=== PATIENT | male | born 1975 | race Caucasian/White ===

== ENCOUNTER 2020-01-03 07:19 | Outpatient (CLI) | payer OTHER, SELFPAY ==
[2020-01-04 14:49] LABS: COVID-19 RT-PCR Result NEGATIVE (Negative)
== END 2020-01-03 07:39 ==
PROVIDERS: Visit Provider Surgery
DX: Z11.59 Encounter for screening for other viral diseases (principal); Z01.818 Encounter for other preprocedural examination
CPT/HCPCS: U0003

== ENCOUNTER 2020-01-08 09:24 | Day surgery (SDC) | payer OTHER, SELFPAY ==
[2020-01-08] VITALS (8 sets, daily range): BP systolic 105–159; BP diastolic 65–97; PULSE 62–76; RESP 11–18; TEMP 36.2–36.6; O2SAT 93–98
--- NOTE | 2020-01-08 07:07 | ROE_ITS ---
Date of service: 01/08/20 Time of Service: 11:25 Operative Note Operative Note DATE OF PROCEDURE: 01/08/20 PRE-OP DIAGNOSIS: umbilical hernia POST-OP DIAGNOSIS: same PROCEDURE: Umbilical hernia repair with mesh SURGEON: Yue Porras ARM[employer]ED [employer]HICLE OFFICER: Loly Swann ANESTHESIA: GETA (ASA 2/ Aminata Botello CRNA) and regional ESTIMATED BLOOD LOSS: 15 PATHOLOGY: none sent COMPLICATIONS: None Patient was transported to: PACU Patient's condition: stable Implants: Ventralex ST Hernia Patch 1.5 inches: REF [id number] LOT [id number] EXO 2021-01-09 Indications: 43 year old who developed an umbilical hernia after a fall from a roof. He is still recovering from a calcaneous fracture as well as spine fractures. He would like to get his hernia repaired soon so that he can recover from that while he is still off work for his back and heel. He is anxious to get back to work as soon as he can Findings: Small 1 cm hernia defect with omentum incarcerated in it. Procedure Description: After informed consent was obtained the patient was taken to the operating room and placed in a supine position. Monitors and SCDs were applied and a timeout was done. The patient's name, date of , procedure type, procedure site, allergies to medications, preoperative antibiotic, and DVT prophylaxis were all reviewed. Fire risk was assessed. Next anesthesia did a bilateral rectus block under ultrasound guidance. Please see their separate dictation. Once anesthesia was done the abdomen was prepped and draped in a sterile surgical fashion. 0.25% Bupivacaine was injected into the dermis just under the umbilicus. An incision was made with a 10 blade under the umbilicus. Dissection was done with cautery through the subcutaneous tissues and through the umbilical stalk down to the fascia. The hernia defect was identified and measured 1 cm. The hernia sac was opened and the incarcerated omentum was amputated. The peritoneum was swept for adhesions. No adhesions were noted. A 1.5 inch round mesh was then placed under the peritoneum and secured in 4 quarters with 2-0 Proline. Once the mesh was secured the tissues were irrigated with some normal saline. No bleeding was identified. The fascia was closed over the mesh with 0 vicryl running suture. 0 Vicryl was used to secure the umbilicus down to the fascia. The subcutaneous tissue was re-approximated with 3-0 vicryl. The dermis was re-approximated with a running 4-0 Vicryl. The skin was cleaned and dried and skin affix was applied. The patient was woken up and taken back to recovery in stable condition. There were no immediate complications. Sponge, instrument and needle counts were correct at the end of the case x2.
--- NOTE | 2020-01-08 07:08 | W.PM.DSUDISC ---
Discharge Plan Disposition Patient Disposition: HOME Condition: Good Discharge Details Reason For Visit: umbilical hernia Attending Provider: Yue Porras Primary Care Provider: None,None Home Meds and New Rx's Prescriptions: Continued ibuprofen [Motrin IB] 200 mg tablet 800 mg PO Q6H PRNRF: 0 ondansetron HCl [Zofran] 4 mg tablet 4 mg PO Q8H RF: 0 Discharge Instructions Additional Instructions: Activity at Home after surgery: 1. Make sure you walk outside at least 4 times per day 2. You should be able to climb a flight of stairs 3. No driving while in pain or taking pain medications 4. No strenuous activity or heavy lifting for 4 weeks (open surgery) Diet, Nutrition, & wound healin. Avoid alcohol until after you are recovered from your surgery 2. Make sure to eat plenty of lean protein (meat, fish, eggs, cottage cheese, beans) 3. Eat a variety of fruits and vegetables. Eat plenty of high fiber foods to avoid constipation. 4. Drink plenty of liquids to stay hydrated and avoid constipation Pain Medications: 1. Tylenol 650 mg every 6 hours and Ibuprofen 600 mg every 6 hours. May alternate between the 2 medications every 3 hours 2. If a narcotic has been prescribed take as directed only for breakthrough pain For Constipation: 1. Take Milk of Magnesia or MiraLax as needed for constipation Other: 1. You may shower daily. Do not scrub the incisions 2. Do not soak the incisions for 1 week 3. You may alternate ice and heat as needed for pain and swelling Wound Care: 1. Keep the incisions clean and dry Other Services that may have been ordered: 0 Home Health- to help with dressing changes 0 Outpatient physical therapy Please call our office if you develop: 1. Fevers >101.5 2. Nausea or Vomiting 3. Worsening pain 4. Redness and thick discharge from the wounds If after hours please call the Hospital at and ask to speak to the on-call surgeon Activity:: no lifting .20 lb x 4 weeks Shower/Bathe:: 24 hours Diet:: As Tolerated Discharge Orders Discharge Orders: Discharge Order (Routine); Ordered 01/08/20 Ordered By: Yue Porras
[2020-01-08] MEDS: Celecoxib 200 MG CAP PO (09:53)
[2020-01-08] MEDS: Acetaminophen 500 MG TAB 1000 MG PO (09:53)
[2020-01-08] MEDS: Lactated Ringers 1,000 ML 80 ML IV (10:18)
[2020-01-08] MEDS: Bupivacaine 0.25% Pres-Free 30 ML VIAL ×2 (10:51→11:04)
[2020-01-08] MEDS: ceFAZolin 2 GM/50 ML BAG IVPB (10:58)
== END 2020-01-08 13:15 | disposition home or self-care (01) ==
LOC: SUR 09:25
PROVIDERS: Visit Provider Surgery
PROC: (CPT 49585; principal; 2020-01-08 11:00)
DX: K42.9 Umbilical hernia without obstruction or gangrene (principal); W13.2XXS Fall from, out of or through roof, sequela; Y99.0 Civilian activity done for income or pay
CPT/HCPCS: 49585; 76942; C1781; J0690; J1885; J2001; J2405; J2704

== ENCOUNTER 2021-06-17 02:57 | Outpatient (CLI) | payer OTHER, SELFPAY ==
[2021-06-17 08:27] LABS: HCT 46.9 % (40.0-50.0); HGB 14.9 g/dL (13.5-17.5); MCH 27.2 pg (27.0-33.0); MCHC 31.8 % (32.0-36.0); MCV 85.7 fL (80-95); MPV 9.9 fL (8.0-11.0); Platelet Count 217 10^3/uL (130-400); RBC 5.47 10^6/uL (4.36-5.78); RDW 13.9 % (11.8-14.1); RDW-SD 43.5 fL
[2021-06-17 08:49] LABS: Hemoglobin A1C 6.1 % (<5.7)
[2021-06-17 09:04] LABS: ALT 39 U/L (16-63); AST 19 U/L (15-37); Albumin 3.8 g/dL (3.4-5.0); Alkaline Phosphatase 85 U/L (46-116); Anion Gap 7.4 mmol/L (3-11); BUN 15 mg/dL (7-18); Bilirubin, Total 0.6 mg/dL (0.2-1.0); CO2 27.6 mmol/L (21.0-32.0); CREATININE 0.7 mg/dL (0.70-1.30); Calcium 8.7 mg/dL (8.5-10.1); Calculated LDL 109 mg/dL (<100); Chloride 104 mmol/L (98-107); Cholesterol 158 mg/dL (<200); Glucose 96 mg/dL (74-106); HDL Cholesterol 31 mg/dL (40-60); Potassium 4.5 mmol/L (3.5-5.1); Sodium 139 mmol/L (136-145); Total Protein 7.2 g/dL (6.4-8.2); Triglyceride 94 mg/dL (<150)
== END 2021-06-17 02:58 | disposition home or self-care (01) ==
PROVIDERS: PCP Nurse Practitioner; Visit Provider Nurse Practitioner
DX: F10.10 Alcohol abuse, uncomplicated (principal); E66.3 Overweight; Z13.1 Encounter for screening for diabetes mellitus; Z13.220 Encounter for screening for lipoid disorders
CPT/HCPCS: 36415; 80053; 80061; 85027; 83036

== ENCOUNTER 2021-07-26 00:29 | Outpatient (CLI) | payer OTHER, SELFPAY ==
--- NOTE | 2021-07-26 07:15 | DI.CT_ITS ---
Exam(s) CT ABDOMEN PELVIS W EXAM: CT ABDOMEN PELVIS W CLINICAL HISTORY: ABD pain, bloody stools,ALCOHOL ABUSE,R10.9.R11.0,VOMITING. TECHNIQUE: Imaging Protocol: Axial computed tomography images with coronal and sagittal reformatted images were created and reviewed CONTRAST MATERIAL: Intravenous: Omnipaque 350 Contrast volume:100 ml Oral: yes COMPARISON: CT ABD PELVIS WITH CONTRAST from 10/29/2015 FINDINGS: ABDOMEN: Lung Bases: Normal where visualized. Liver: Enlarged, moderate to severe fatty infiltration, stable appearance from 2016.. No measurable mass. Gallbladder and biliary tract: No radiodense calculus or dilation. Pancreas: Normal density, no abnormal calcifications or inflammatory process. Spleen: Normal. Kidneys: Normal size, contour and axis. No radiodense stones or obstructive uropathy. No masses seen. Adrenal glands: No masses seen. Abdominal Aorta: Abdominal portion non-dilated. Stomach and proximal small bowel unremarkable. PELVIS: Bladder: No gross wall thickening. No calculi.No focal mass. Bowel: Diverticulosis lower descending and sigmoid colon. Small linear configuration of abnormal mid mesenteric density extending from the lower descending colon to an adjacent loop of small bowel whic h could represent a fistulous tract. There is a rounded low-density collection within the small bow el wall, consistent with an intramural abscess. No significant colonic wall thickening. Appendix no rmal. Peritoneal cavity: No ascites, collection or mesenteric inflammatory response. Bones: Severe L1 compression fracture is new since 2016 but it does not appear acute. Mild degenerat giovany changes, greater in the lower thoracic region. Reproductive organs: Within normal limits. Lymph nodes: Mildly enlarged, reactive mesenteric lymph nodes. Obstruction. Normal quantity of stoo l. Impression: 1. 2.7 centimeter intramural abscess involving a loop of small bowel adjacent to the lower descendin g colon which shows diverticulosis with apparent fistulous tract. 2. Stable appearing moderate to severe hepatic steatosis. RADIATION DOSE DELIVERED: 1,294.74mGy.cm Total DLP DATA REPOSITORY: All CT scans at this facility are submitted to the National Radiology Data Registry (NRDR) Dose Index Registry (DIR) with the [employer] ([employer]). RADIATION OPTIMIZATION: All CT scans at this facility use at least one of these dose optimization te chniques: automated exposure control; mA and/or kV adjustment per patient size (includes targeted exa ms where dose is matched to clinical indication); or iterative reconstruction.
[2021-07-26] MEDS: Omnipaque 350 MG/ML 100 ML BTL IJ (09:52)
== END 2021-07-26 00:49 ==
PROVIDERS: PCP Nurse Practitioner; Visit Provider Nurse Practitioner
DX: K62.5 Hemorrhage of anus and rectum (principal); R10.9 Unspecified abdominal pain; F10.10 Alcohol abuse, uncomplicated; R11.10 Vomiting, unspecified; K63.0 Abscess of intestine; K76.0 Fatty (change of) liver, not elsewhere classified; R59.0 Localized enlarged lymph nodes
CPT/HCPCS: 74177; J3490

== ENCOUNTER 2021-08-10 01:38 | Outpatient (CLI) | payer OTHER, SELFPAY ==
--- NOTE | 2021-08-10 07:45 | DI.CT_ITS ---
Exam(s) CT ABDOMEN PELVIS W EXAM: CT ABDOMEN PELVIS W CLINICAL HISTORY: ? 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 Liver: Normal density. No measurable mass. Portal, Superior Mesenteric, and Splenic Veins: Unremarkable. Gallbladder and Biliary Tract: No radiodense calculus or dilation. Pancreas: Normal density, no abnormal calcifications or inflammatory process. Spleen: Normal. Adrenals: No masses seen. Kidneys: Normal size, contour and axis. No radiodense stones or obstructive uropathy. No masses seen. Abdominal Aorta: Abdominal portion non-dilated. Bowel: There is again seen an air-fluid collection within the wall of a loop of small bowel in the ce ntral abdomen. It measures 3.6 x 3.2 cm. This compares to 2.2 x 2.5 cm. There is mild stranding in the adjacent soft tissues. There is again seen a soft tissue connection between this loop of bowel and a loop of sigmoid colon. This may represent a fistulous tract. There is diverticulosis seen in the sigmoid colon. No bowel wall thickening is seen in the sigmoid colon. Appendix is unremarkable. The remainder of the bowel is unremarkable. Peritoneal Cavity: No ascites, collection or mesenteric inflammatory response. No free air. Lymph Nodes: Within normal limits. Bones: Within normal limits for the patient's age. The compression deformities involving L1 and L2 a re stable. They appear chronic. Soft Tissues: Small bilateral fat containing inguinal hernia are present. PELVIS: Bladder: Symmetric distention, no gross wall thickening. Reproductive Organs: Unremarkable as visualized. Lymph Nodes: Within normal limits. Bones: Within normal limits for the patient's age. IMPRESSION: 1. Interval increase in size of the air-fluid collection within the wall of a loop of small bowel in the central abdomen. 2. Persistent soft tissue connection between the inflamed small bowel and the colon. This may repres ent a fistula. No air or contrast is seen within the soft tissue at this time. RADIATION DOSE DELIVERED: 1,450.45mGy.cm Total DLP DATA REPOSITORY: All CT scans at this facility are submitted to the National Radiology Data Registry (NRDR) Dose Index Registry (DIR) with the [employer] ([employer]CR). RADIATION OPTIMIZATION: All CT scans at this facility use at least one of these dose optimization te chniques: automated exposure control; mA and/or kV adjustment per patient size (includes targeted exa ms where dose is matched to clinical indication); or iterative reconstruction.
[2021-08-10] MEDS: Omnipaque 350 MG/ML 50 ML BTL IJ (12:22)
[2021-08-10] MEDS: Breeza Beverage 473 ML BTL 950 ML PO (12:24)
[2021-08-10] MEDS: Omnipaque 350 MG/ML 100 ML BTL IJ (14:01)
== END 2021-08-10 01:58 ==
LOC: DI 01:38
PROVIDERS: PCP Nurse Practitioner; Visit Provider Surgery
DX: K63.2 Fistula of intestine (principal); K63.89 Other specified diseases of intestine
CPT/HCPCS: 74177; J3490; Q9967

== ENCOUNTER 2021-08-25 02:47 | Outpatient (CLI) | payer OTHER, SELFPAY ==
[2021-08-25 07:57] LABS: Abs Immature Grans 0.02 10^3/uL (0.0-0.06); Absolute Basophil Count 0.02 10^3/uL (0.0-0.2); Absolute Eosinophil Count 0.12 10^3/uL (0.0-0.7); Absolute Lymphocyte Count 1.71 10^3/uL (1.2-3.4); Absolute Monocyte Count 0.56 10^3/uL (0.1-0.8); Absolute Neutrophil Count 3.77 10^3/uL (1.2-6.7); Basophils % 0.3; Eosinophils % 1.9; HCT 49.7 % (40.0-50.0); HGB 15.9 g/dL (13.5-17.5); Immature Grans % 0.3; Lymphocytes % 27.6; MCH 26.9 pg (27.0-33.0); MCV 84.1 fL (80-95); MPV 10.6 fL (8.0-11.0); Neutrophils % 60.9; Nucleated RBC 0 %; Platelet Count 185 10^3/uL (130-400); RBC 5.91 10^6/uL (4.36-5.78)
[2021-08-25 09:21] LABS: ALT 31 U/L (16-63); AST 17 U/L (15-37); Albumin 3.9 g/dL (3.4-5.0); Alkaline Phosphatase 86 U/L (46-116); Anion Gap 9.1 mmol/L (3-11); BUN 11 mg/dL (7-18); Bilirubin, Total 0.6 mg/dL (0.2-1.0); CO2 24.9 mmol/L (21.0-32.0); CREATININE 0.9 mg/dL (0.70-1.30); Calcium 8.8 mg/dL (8.5-10.1); Chloride 107 mmol/L (98-107); Glucose 149 mg/dL (74-106); Potassium 3.8 mmol/L (3.5-5.1); Sodium 141 mmol/L (136-145); Total Protein 7.1 g/dL (6.4-8.2)
[2021-08-25 17:09] LABS: CRP, High Sensitivity 0.83 mg/L (See Note)
[2021-08-27 12:00] LABS: c-ANCA Negative (Negative); p-ANCA Negative (Negative)
== END 2021-08-25 02:48 | disposition home or self-care (01) ==
LOC: LBO 02:54
PROVIDERS: PCP Nurse Practitioner; Visit Provider Surgery
DX: R19.7 Diarrhea, unspecified (principal); K63.2 Fistula of intestine
CPT/HCPCS: 36415; 80053; 86141; 85025; 86255

== ENCOUNTER 2023-10-26 01:03 | Outpatient (CLI) | payer OTHER, SELFPAY ==
[2023-10-26 15:36] LABS: Abs Immature Grans 0.06 10^3/uL (0.0-0.06); Absolute Basophil Count 0.04 10^3/uL (0.0-0.2); Absolute Eosinophil Count 0.16 10^3/uL (0.0-0.7); Absolute Lymphocyte Count 1.93 10^3/uL (1.2-3.4); Absolute Monocyte Count 0.77 10^3/uL (0.1-0.8); Absolute Neutrophil Count 9.03 10^3/uL (1.2-6.7); Basophils % 0.3 %; Eosinophils % 1.3 %; HCT 47.5 % (40.0-50.0); HGB 15.8 g/dL (13.5-17.5); Immature Grans % 0.5 %; Lymphocytes % 16.1 %; MCH 28.8 pg (27.0-33.0); MCHC 33.3 % (32.0-36.0); MCV 87 fL (80-95); MPV 10.5 fL (8.0-11.0); Monocytes % 6.4 %; Neutrophils % 75.4 %; Platelet Count 190 10^3/uL (130-400); RBC 5.48 10^6/uL (4.36-5.78); RDW 12.8 % (11.8-14.1); RDW-SD 40.6 fL; WBC 11.98 10^3/uL (4.4-10.8)
[2023-10-26 15:53] LABS: Hemoglobin A1C 6.4 % (<5.7)
[2023-10-26 16:39] LABS: ALT 51 U/L (16-63); AST 25 U/L (15-37); Albumin 4.2 g/dL (3.4-5.0); Alkaline Phosphatase 68 U/L (46-116); Anion Gap 10.3 mmol/L (3-11); BUN 22 mg/dL (7-18); Bilirubin, Total 1.1 mg/dL (0.2-1.0); CO2 25.7 mmol/L (21.0-32.0); CREATININE 0.8 mg/dL (0.70-1.30); Calcium 9.2 mg/dL (8.5-10.1); Calculated LDL 78 mg/dL (<100); Chloride 100 mmol/L (98-107); Cholesterol 151 mg/dL (<200); Estimated GFR 111.22 (mL/min/1.73m2); Glucose 121 mg/dL (74-106); HDL Cholesterol 38 mg/dL (40-60); Sodium 136 mmol/L (136-145); TSH (W/Ref FT4) 0.94 uIU/mL (0.36-3.74); Total Protein 7.7 g/dL (6.4-8.2); Triglyceride 178 mg/dL (<150)
== END 2023-10-26 01:04 | disposition home or self-care (01) ==
LOC: LBO 01:03
PROVIDERS: PCP Nurse Practitioner; Visit Provider Nurse Practitioner
DX: E66.9 Obesity, unspecified (principal); R73.03 Prediabetes; Z13.220 Encounter for screening for lipoid disorders
CPT/HCPCS: 36415; 80053; 80061; 83036; 84443; 85025

== ENCOUNTER 2024-06-06 02:47 | Outpatient (CLI) | payer OTHER, SELFPAY ==
--- NOTE | 2024-06-06 15:04 | DI.RAD_ITS ---
Exam(s) XR HIP RT COMPLETE AP PELVIS EXAM: XR HIP RT COMPLETE AP PELVIS CLINICAL HISTORY: ? OA,ACUTE LOW BACK PAIN,m54.50. TECHNIQUE: 2D digital imaging was performed. Two views COMPARISON: No exams were available for comparison FINDINGS: BONES: No acute fracture is present. No bony destructive lesion is seen. JOINTS: No dislocation present. The hip joint spaces are maintained. Mild bilateral acetabular spu rring. SI joints and pubic symphysis are unremarkable. SOFT TISSUE: Normal. IMPRESSION: Mild degenerative changes of both hips. DATA REPOSITORY: RADIATION DOSE DELIVERED:
--- NOTE | 2024-06-06 15:04 | DI.RAD_ITS ---
Exam(s) XR LUMBAR SPINE COMPLETE EXAM: XR LUMBAR SPINE COMPLETE CLINICAL HISTORY: acute low back pain,M54.50. TECHNIQUE: 2D digital imaging was performed. Five views. COMPARISON: CT CT ABDOMEN PELVIS W from 08/10/2021 FINDINGS: BONES: No acute fracture or destructive lesion. Stable moderate to severe L1 compression fracture. T he remaining vertebral body heights are maintained. Moderate facet hypertrophy identified at L3-4 th rough L5-S1. L5-S1.. DISKS: Mild narrowing of the L1-2 disc space. The remaining intervertebral disc spaces are mainta ined. ALIGNMENT: Lumbar spinal alignment is within normal limits. SOFT TISSUE: Normal. IMPRESSION: Stable L1 compression fracture. Facet degenerative changes of the lower lumbar spine. DATA REPOSITORY: RADIATION DOSE DELIVERED:
== END 2024-06-06 03:07 ==
LOC: DI 02:47
PROVIDERS: PCP Nurse Practitioner; Visit Provider Nurse Practitioner Family
DX: M51.362 Other intervertebral disc degeneration, lumbar region with discogenic back pain and lower extremity pain (principal); M16.0 Bilateral primary osteoarthritis of hip
CPT/HCPCS: 72110; 73502